=== PATIENT | female | born 1955 | race Caucasian/White ===

== ENCOUNTER 2019-03-13 09:36 | Day surgery (SDC) | payer OTHER ==
[~2019-03-13] VITALS: Ht 175.3 cm; Wt 86.4 kg
[2019-03-13 09:50] VITALS: BP 124/65
[2019-03-13] MEDS ORDERED: PROBIOTIC PO (10:38)
[2019-03-13] MEDS ORDERED: BIOTIN PO (10:38)
[2019-03-13] MEDS ORDERED: VITAMIN B-12 PO (10:39)
[2019-03-13] MEDS ORDERED: fentaNYL/PF 50MCG/1 ML 2ML syringe ONE (10:56)
[2019-03-13] MEDS ORDERED: MIDAZolam 5mg/5ml vial ONE (10:56)
[2019-03-13 12:05] VITALS: BP 108/71
[2019-03-13 12:15] VITALS: BP 117/58
[2019-03-13 12:25] VITALS: BP 112/65
[2019-03-13 12:35] VITALS: BP 110/64
== END 2019-03-13 12:45 | disposition home or self-care (01) ==
LOC: GI LAB 09:36
PROVIDERS: ATTEND Internal Medicine Gastroenterology
DX: Z12.11 Encounter for screening for malignant neoplasm of colon (principal); K63.5 Polyp of colon; K57.30 Diverticulosis of large intestine without perforation or abscess without bleeding; K64.8 Other hemorrhoids; K63.89 Other specified diseases of intestine
CPT/HCPCS: 45385; 99153; C1773; G0500; J2250; J3010; J7040; 99152; A4620